=== PATIENT | female | born 1975 | race Caucasian/White ===

== ENCOUNTER 2018-03-06 20:24 | Emergency (ER) | payer MEDICAID ==
[~2018-03-06] VITALS: Ht 152.4 cm; Wt 68.0 kg
[2018-03-06 20:44] VITALS: Ht 152.4 cm; Wt 68.0 kg
[2018-03-06 23:48] VITALS: BP 120/84
== END 2018-03-06 23:48 | disposition home or self-care (01) ==
LOC: ED 20:24
DX: R51 Headache (principal); R10.13 Epigastric pain; R11.10 Vomiting, unspecified
CPT/HCPCS: J0780; J1200; J7030

== ENCOUNTER 2019-10-30 17:50 | Emergency (ER) | payer MEDICAID ==
[~2019-10-30] VITALS: Ht 152.4 cm; Wt 69.9 kg
[2019-10-30 18:16] VITALS: Ht 152.4 cm; Wt 69.9 kg
[2019-10-30 19:08] LABS: BASOPHIL % 0.4 % (0-2); PLATELET COUNT 272 x10^3mcL (130-400)
[2019-10-30 19:09] LABS: RED CELL DISTRIBUTION WIDTH 16.6 % (11.5-14.5)
[2019-10-30 19:29] LABS: CALCIUM 8.3 mg/dL (8.5-10.1); CARBON DIOXIDE 25.8 mmol/L (21-32); CHLORIDE SERUM 106 mmol/L (98-107); CREATININE SERUM 0.6 mg/dL (0.6-1.0); GFR1 > 60 mL/min; GLUCOSE SERUM 128 mg/dL (74-106); POTASSIUM SERUM 3.9 mmol/L (3.5-5.1); SODIUM SERUM 140 mmol/L (136-145)
[2019-10-30 19:33] LABS: ALKALINE PHOSPHATASE 69 U/L (46-116); ALT/SGPT 28 U/L (14-59); AST/SGOT 17 U/L (15-37); BILIRUBIN TOTAL 0.46 mg/dL (0.20-1.00); LIPASE 163 IU/L (73-393); TOTAL PROTEIN, SERUM 7.3 g/dL (6.4-8.2)
[2019-10-30 19:37] LABS: ALBUMIN 3.3 g/dL (3.4-5.0)
[2019-10-31 02:17] VITALS: BP 117/56
== END 2019-10-31 02:17 | disposition home or self-care (01) ==
LOC: ED 17:50
PROVIDERS: Emergency Medicine
DX: G43.909 Migraine, unspecified, not intractable, without status migrainosus (principal); N83.201 Unspecified ovarian cyst, right side; R42 Dizziness and giddiness
CPT/HCPCS: J7030; Q0092